=== PATIENT | female | born 1980 | race Caucasian/White ===

== ENCOUNTER 2019-04-09 16:29 | Emergency (ER) | payer SELFPAY ==
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
[2019-04-09] MEDS ORDERED: HYDROCODONE/APAP 10/325 TAB ONE (17:15)
== END 2019-04-09 17:54 | disposition home or self-care (01) ==
LOC: EDSEX 16:29 → ER 16:29
PROC: 0JQ00ZZ Repair Scalp Subcutaneous Tissue and Fascia, Open Approach (ICD-10-PCS; principal; 2019-04-09)
DX: S01.01XA Laceration without foreign body of scalp, initial encounter (principal); S00.90XA Unspecified superficial injury of unspecified part of head, initial encounter; F17.210 Nicotine dependence, cigarettes, uncomplicated; Y04.2XXA Assault by strike against or bumped into by another person, initial encounter; Y93.9 Activity, unspecified; Y92.9 Unspecified place or not applicable; Z88.0 Allergy status to penicillin
CPT/HCPCS: 99284

== ENCOUNTER → 2023-09-21 | Emergency (ER) | payer OTHER, SELFPAY ==
[~2023-09-21] MED LIST: DIAZEPAM 5 MG TABLET ONE; HYDROCODONE/APAP 5/325 MG TAB ONE
--- OUTSIDE RECORDS SUMMARY | 2023-09-21 08:07 | XMS REPORT | Continuity of Care Document ---
Author Name Unknown Address [address] [facility] [place] [address] [facility] Address 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 Name Role Phone Chantelle Riojas Primary Care Physicia n Shira Donis Attending Clinician Unavailable CHANTELLE CAMPBELL Attending Clinician Unavail able Chantelle Riojas Attending Clinician + Louisa Friedman RN Attending Clinician Shira Donis Attending Clinician Patricia CALLAHAN Attending Clinician Unavailable L[place] Admitting Clinician Unavailable Payers Payer Name Policy Type Policy Number Effective Date Expirati on Date Source [facility] [id number] 2022 00:00:00 Problems Condition Name Condition Details Condition Category Status Onset Date Resolution Date Last Treatment Date Treating Clinician Comments Source Obesity (BMI 30-39.9) Obesity (BMI 30-39.9) Disease Active 2022-08 00:00: 00 [facility] History of bilateral tubal ligation History of bilateral tubal ligation Disease Active 2022-08 00:00: 00 [facility] Well woman exam Well woman exam Disease Active 2022-08 00:00: 00 [facility] Allergies, Adverse Reactions, Alerts Allergy Name Allergy Type Status Severity Reaction(s) Onset Date Inactive Date Treating Clinician Comments Source Penicill ins Propensi ty to adverse reaction s Active Anaphylaxis 11-02 00:00: 00 [facility] PENICILL INS Drug Class Active Anaphylaxis 11-02 00:00: 00 [facility] Social History Social Habit Start Date Stop Date Quantity Comments Source History of tobacco use Smokes tobacco daily [facility] Tobacco use and exposure 2023-05-29 00:00:00 2023-05-29 00:00:00 Smokeless tobacco non-user [facility] Alcohol intake 2023-05-29 00:00:00 2023-05-29 00:00:00 Ex-drinker (finding) [facility] History of Social function 2023-05-29 00:00:00 2023-05-29 00:00:00 [facility] Tobacco Comment 2023-05-29 00:00:00 2023-05-29 00:00:00 Vapes since 2021 [facility] Sex Assigned At 1980 00:00:00 1980 00:00:00 [facility] Smoking Status Start Date Stop Date Source Smokes tobacco daily 2023-05-29 00:00:00 [facility] Medications Ordered Medication Name Filled Medication Name Start Date Stop Date Current Medication? Ordering Clinician Indication Dosage Frequency Signature (SIG) Comments Components Source CIPROFLOXAC IN 500 MG ORAL TAB 11-02 00:00: 00 Yes Take one tablet by mouth twice a day for ten days [facility] CIPROFLOXAC IN 500 MG ORAL TAB 11-02 00:00: 00 Yes Take one tablet by mouth twice a day for ten days [facility] CIPROFLOXAC IN 500 MG ORAL TAB 11-02 00:00: 00 Yes Take one tablet by mouth twice a day for ten days [facility] CIPROFLOXAC IN 500 MG ORAL TAB 11-02 00:00: 00 Yes Take one tablet by mouth twice a day for ten days [facility] CIPROFLOXAC IN 500 MG ORAL TAB 11-02 00:00: 00 Yes Take one tablet by mouth twice a day for ten days [facility] CIPROFLOXAC IN 500 MG ORAL TAB 11-02 00:00: 00 Yes Take one tablet by mouth twice a day for ten days [facility] Vital Signs Vital Name Observation Time Observation Value Comments Bennie anderson Systolic blood pressure 2023-05-29 14:22:00 133 mm[Hg] [facility] Diastolic blood pressure 2023-05-29 14:22:00 83 mm[Hg] [facility] Heart rate 2023-05-29 14:22:00 87 /min [facility] Body temperature 2023-05-29 14:22:00 36.67 Teresita [facility] Respiratory rate 2023-05-29 14:22:00 17 /min [facility] Body height 2023-05-29 14:22:00 160 cm [facility] Body weight 2023-05-29 14:22:00 90.084 kg [facility] BMI 2023-05-29 14:22:00 35.18 kg/m2 [facility] Encounters Start Date/Time End Date/Time Encounter Type Admission Type Attending Clinicians Care Facility Care Department Encounter ID Source 2022-12-30 16:53:01 Outpatient White, Shira HPNT HPNT [id number] [facility] oint 2022-10-02 09:50:02 Outpatient HPNT HPNT [id number] [facility] oint 2022-09-08 11:15:04 Outpatient HPNT HPNT [id number] [facility] 2022-08-20 13:04:02 Outpatient HPNT HPNT [id number] [facility] 2022-08-19 09:48:05 Outpatient HPNT HPNT [id number] [facility] oint 2023-08-25 06:42:12 2023-08-25 23:59:00 Outpatient CHANTELLE BARAJAS [facility] [id number] [facility] 2023-08-25 06:42:12 2023-08-25 23:59:00 Hospital Encounter Akinsipe, Chantelle C [facility] [id number] [facility] 2023-07-05 00:00:00 2023-07-05 00:00:00 Patient Outreach Louisa Friedman [id number] [facility] 2023-06-28 00:00:00 2023-06-28 00:00:00 Patient Outreach Louisa Friedman [id number] [facility] 2023-05-29 09:30:00 2023-05-29 10:06:02 Office Visit Chantelle Campbell [facility] 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 [facility] [id number] [facility] 2023-05-29 09:30:00 2023-05-29 10:06:02 Outpatient R CHANTELLE CAMPBELL [facility] [id number] [facility] 2022-08-26 00:00:00 2022-08-26 00:00:00 Outpatient White Shira [facility] [id number] [facility] 2022-02-18 10:39:00 2022-02-18 10:39:00 Outpatient MARCO RAMON [id number] Bryanna mauro [facility] Program Results Test Description Test Time Test Comments Results Result Co mments Source CULTURE, URINE 2023-09-11 14:39:06 SPECIMEN NUMBER: [id number] CULTURE, URINE SPECIMEN NUMBER: [id number] SPECIMEN COMMENT: URINE SOURCE: URINE REPORT STATUS: FINAL ISOLATE NUMBER 1: ORGANISM: 09/10/2023 >100,000 CFU/ML GRAM NEGATIVE BACILLI IDENTIFICATION: 09/11/2023 ESCHERICHIA COLI E. COLI AMOX ICILLIN/CA SENSITIVE <=8/4AMPICILLIN RESISTANT >16CEFAZOLIN SENSITIVE 8CEFTRIAXONE SENSITIVE <=1CIPROFLOXACIN SENSITIVE <=1LEVOFLOXACIN SENSITIVE <=2NITROFURANTOIN SENSITIVE <=32PIP/TAZOBAC SENSITIVE <=16TETRACYCLINE SENSITIVE <=4TOBRAMYCIN SENSITIVE <=4TRIMETH/SULFA SENSITIVE <=2/38 NOTE: NUMBERS DISPLAYED REPRESENT MINIMUM INHIBITORY CONCENTRATION (ZAIRE) WHICH IS EXPRESSED IN MCG/ML. UNLESS OTHERWISE INDICATED, ALL TESTING PERFORMED AT [employer] [employer] [address] [place] [address] COLD ROLL OPERATOR: DAT MARIE M.D. [place] NUMBER [id number] [facility] [place]. [id number] PROTHROMBIN TIME (PT)2023-07-27 04:06:55* Test Item Value Reference Range Interpretation Comme nts PROTHROMBIN TIME (PT) (test code = 1402) 13.0 SECONDS 12.5-14.7 INR (test code = 48111) 0.9 SEE BELOW CURRENT RECOMMENDATIONS ARE FOR AN INR OF 2.0-3.0 FOR ALL PATIENTS ON VITAMIN K ANTAGONISTS, EXCEPT THOSE WITH PROSTHETIC HEART VALVES, FOR WHOM INR OF 2.5-3.5 IS RECOMMENDED. UNLESS OTHERWISE INDICATED, ALL TESTING PERFORMED AT [facility] [employer] [facility]. [address] [place] [address] COLD ROLL OPERATOR: DAT MARIE M.D. [place] NUMBER [id number] [place]. [id number] HEPATITIS C [id number] 17:39:57* Test Item Value Reference Range Interpretation Comme nts HEPATITIS C GENOTYPE (test code = 67607) 2 Assay method ology is real-time PCR amplification of the 5'UTR maqHV1x regions of the HCV genome utilizing the [employer] RealTime HCVGenotype II assay and Jiang HCV Genotype Plus assay. Possiblegenotypes include 1a, 1b, 2, 3, 4, 5, and 6. UNLESS OTHERWISE INDICATED, ALL TESTING PERFORMED AT [employer], [facility]. [address] [place] [address] COLD ROLL OPERATOR: DAT MARIE M.D. CLIA NUMBER [id number] [facility] [place]. [id number] PROTEOTYPE S/Z, REFLEX TO [id number] 09:54:37* Test Item Value Reference Range Interpretation Comme nts [id number] (test code = 17643) 149 mg/dL 100-190 -------ADITI TIONAL INFORMATION -------Method: Nephelometry A1AT PROTEOTYPE S/Z (test code = 71013) (NOTE) S Mutation: NegativeZ Mutation: Negative Results most consistent with MM phenotype. ADITI TIONAL INFORMATION -------This test was developed and its performance characteristics determined by [facility] in a manner consistent with CLIA requirements. This test has not been cleared or approved by the U.S. Food and Drug Administration. CRITHIDIA DS DNA [id number] 01:11:15* Test Item Value Reference Range Interpretation Comme nts CRITHIDIA DS DNA ANTIBODY (test code = 71397) <1:10 See_Comment [Automated [employer]] The system which generated this result transmitted reference range: <1:10. The reference range was not used to interpret this result as normal/abnormal. HCV RNA, PCR [id number] 18:52:21* Test Item Value Reference Range Interpretation Comme nts HCV RNA, PCR QUANT (test code = 4571) [id number] IU/ML H HCV VIRAL LOG (test code = 18161) 6.364 LOG IU/ML H Based on this re sult, reflex HCV Genotype testing will be performed and reported separately. Range of quantitation is 15-100,000,000 IU/mL, (1.176-8.000 logIU/mL). Samples with HCV RNA detected below the limit ofquantitation are reported as <15 IU/mL. Assay methodology ispolymerase chain reaction (PCR) using the Nabila Chaitanya 6800/Eayun00system. The expected range is NOT DETECTED. HCV QUANT, REFLEX [id number] 18:52:21* Test Item Value Reference Range Interpretation Comme nts HCV RNA, PCR QUANT (test code = 4571) 0050428 IU/ML H HCV VIRAL LOG (test code = 49184) 6.364 LOG IU/ML H Based on this re sult, reflex HCV Genotype testing will be performed and reported separately. Range of quantitation is 15-100,000,000 IU/mL, (1.176-8.000 logIU/mL). Samples with HCV RNA detected below the limit ofquantitation are reported as <15 IU/mL. Assay methodology ispolymerase chain reaction (PCR) using the Nabila Chaitanya [employer]0/8800system. The expected range is NOT DETECTED. CORTISOL, A.M. [id number] 11:03:19* Test Item Value Reference Range Interpretation Comme [facility] CORTISOL, A.M. SPECIMEN (jorge t code = 4267) 0.7 UG/DL 4.8-19.5 L DNA DS ANTIBODY REFLEX [id number] 07:22:57* Test Item Value Reference Range Interpretation Comme nts dsDNA ANTIBODY (test code = 63710) 5.0 SEE BELOW H NEGATIVE . . . . . . . . . . . . . . IU/ML <=4.9 INDETERMINATE. . . . . . . . . . . . IU/ML 5.0-9.0 POSITIVE . . . . . . . . . . . . . . IU/ML >=10.0 dsDNA ANTIBODY REFLEX (test code = 78424) (NOTE) NEGATIVE NOTE: PLEASE REFER TO RESULTS OF CRITHIDIA DS DNA ANTIBODY. BOLAÑOS (Sm) [id number] 07:22:57* Test Item Value Reference Range Interpretation Comme nts BOLAÑOS (Sm) ANTIBODY (test co de = 41410) <0.2 AI <1.0 HEPATITIS PANEL, [id number] 05:58:02* Test Item Value Reference Range Interpretation Comme nts HEPATITIS A IgM (test code = 86008) NON-REACTIVE NON-REACTIVE HEPATITIS B CORE IgM (test code = 4644) NON-REACTIVE NON-REACTIVE HEPATITIS B SURF AG (test code = 2739) NON-REACTIVE NON-REACTIVE HEPATITIS C ANTIBODY (test code = 4675) REACTIVE NON-REACTIVE A INTERPRETATION HEPATITIS A: (test code = 2552) (NOTE) Hepatitis A serology shows no evidence of acute hepatitis A. INTERPRETATION HEPATITIS B: (test code = 61634) (NOTE) Hepatitis B serology shows no evidence of acute hepatitis B andno indication of exposure to hepatitis B virus in the previous yuly eight months. INTERPRETATION HEPATITIS C: (test code = 24994) (NOTE) Hepatitis C serology is consistent with exposure to hepatitis Cvirus. The CDC recommends performing a supplemental confirmatory teston initial positive hepatitis C antibody tests. HCV PCR quantitativecan be used to confirm these results on a new sample (See MMWR, 2003;52 RR-3). HCV, RFLX QNT, RFLX SOTO (QNT>500)2023-07-14 05:58:02* Test Item Value Reference Range Interpretation Comme nts HEPATITIS C ANTIBODY (test c ode = 4675) REACTIVE NON-REACTIVE A JUAN (ANTI-NUCLEAR AB) WITH REFLEX [id number] 03:32:23* Test Item Value Reference Range Interpretation Comme nts ANTI-NUCLEAR ANTIBODIES (test code = 3506) POSITIVE NEGATIVE A JUAN PATTERN (REPORTED TITER) (test code = 12261) SEE BELOW HOMOGENEOUS (test code = 16767) 1:80 TITER NEGATIVE H SPECKLED (test code = 197592) NEGATIVE TITER NEGATIVE DENSE FINE SPECKLED (test code = 36954) NEGATIVE TITER NEGATIVE CENTROMERE (test code = 503015) NEGATIVE TITER NEGATIVE COARSE SPECKLED (test code = 724735) NEGATIVE TITER NEGATIVE DISCRETE NUCLEAR DOTS (test code = 868090) NEGATIVE TITER NEGATIVE NUCLEOLAR (test code = 678573) NEGATIVE TITER NEGATIVE NUCLEAR MEMBRANE (test code = 406804) NEGATIVE TITER NEGATIVE CYTO. RETICULAR (LILY) (test code = 637437) NEGATIVE NEGATIVE COMMENTS (test code = 403233) NONE METHOD (test code = 20712) (NOTE) TESTING PERFORME D BY [employer]AT[employer].THE METHOD INCLUDES A SCREEN THRESHOLD OF 1:80, DIGITIZED AND COMPUTER ALGORITHM-ASSISTED INTERPRETATION OF TITERS AND DIGITAL PATTERNS, AND HEp-2 CELL LINE SUBSTRATE. ADDITIONAL UNUSUAL PATTERNS WILL BE GIVEN COMMENTS.FOR MORE INFORMATION, SEE [email or web address] UNLESS OTHERWISE INDICATED, ALL TESTING PERFORMED AT [facility] [address] [place] [id number] COLD ROLL OPERATOR: DAT MARIE M.D. CLIA NUMBER [id number] [facility] [place] [place]. [id number] COMPREHENSIVE METABOLIC [id number] 07:45:42* Test Item Value Reference Range Interpretation Comme nts GLUCOSE (test code = 2216) 77 MG/DL 70-99 BUN (test code = 2207) 12 MG/DL 6-20 CREATININE (test code = 2214) 0.82 MG/DL 0.60-1.30 eGFR (2020 CKD-EPI) (test co de = 26568) 91 ML/MIN/1.73 >60 CALC BUN/CREAT (test code = 2235) 15 RATIO 6-28 SODIUM (test code = 223) 140 MEQ/L 133-146 POTASSIUM (test code = 2228) 4.6 MEQ/L 3.5-5.4 CHLORIDE (test code = 2215) 104 MEQ/L 95-107 CARBON DIOXIDE (test code = 2206) 14 MEQ/L 19-31 L CALCIUM (test code = 2209) 9.3 MG/DL 8.5-10.5 PROTEIN, TOTAL (test code = 222) 7.0 G/DL 6.1-8.3 ALBUMIN (test code = 2201) 4.2 G/DL 3.5-5.2 CALC GLOBULIN (test code = 2240) 2.8 G/DL 1.9-3.7 CALC A/G RATIO (test code = 2234) 1.5 RATIO 1.0-2.6 BILIRUBIN, TOTAL (test code = 220) 0.3 MG/DL <=1.2 ALKALINE PHOSPHATASE (test code = 2204) 44 U/L 40-113 AST (test code = 221) 22 U/L 9-40 ALT (test code = 2219) 14 U/L 5-40 LIPID [id number] 07:45:42* Test Item Value Reference Range Interpretation Comme nts CHOLESTEROL (test code = 2210) 178 MG/DL <200 TRIGLYCERIDES (test code = 2232) 62 MG/DL <150 HDL CHOLESTEROL (test code = 2220) 56 MG/DL >39 CALC LDL CHOL (test code = 2237) 108 MG/DL <100 H NOTE: CALCULATED LDL IS BASED ON JENNIE-BANEGAS METHOD WHICHINCLUDES ADJUSTABLE TRIGLYCERIDE:VLDL CHOLESTEROL RATIO.THIS FACTOR VARIES BY MEASURED TRIGLYCERIDE AND NON-HDLCHOLESTEROL CONCENTRATIONS WITH INCREASED CALCULATED LDL SEENIN HIGHER TRIGLYCERIDE OR LOWER NON-HDL SPECIMENS. FOR MOREINFORMATION, SEE CLIENT ANNOUNCEMENT AT [email or web address] RISK RATIO LDL/HDL (test code = 2238) 1.93 RATIO <3.22 TSH, THIRD [id number] 07:41:46* Test Item Value Reference Range Interpretation Comme nts TSH, THIRD GENERATION (test code = 2821) 3.180 UIU/ML 0.400-4.100 HEMOGLOBIN [id number] 03:22:31* Test Item Value Reference Range Interpretation Comme nts HEMOGLOBIN A1c (test code = 93526) 5.2 % 4.2-5.6 CBC W/AUTO DIFF WITH [id number] 02:44:19* Test Item Value Reference Range Interpretation Comme nts WBC (test code = 1001) 5.1 K/UL 3.5-11.0 RBC (test code = 1002) 4.59 M/UL 3.80-5.40 HEMOGLOBIN (test code = 1003) 11.8 G/DL 11.5-15.5 HEMATOCRIT (test code = 1004) 36.9 % 34.0-45.0 MCV (test code = 1005) 80.4 fL 80.0-99.0 MCH (test code = 1006) 25.7 PG 25.0-33.0 MCHC (test code = 1007) 32.0 G/DL 31.0-36.0 RDW (test code = 1038) 14.0 % 11.5-15.0 NEUTROPHILS (test code = 1008) 58.5 % LYMPHOCYTES (test code = 1010) 30.0 % MONOCYTES (test code = 1011) 8.5 % EOSINOPHILS (test code = 1012) 1.6 % BASOPHILS (test code = 1013) 1.2 % IMMATURE GRANULOCYTES (test code = 1036) 0.2 % NUCLEATED RBCS (test code = 1065) 0.0 /100 WBC'S See_Comment [Automated [employer]] The system which generated this result transmitted reference range: 0.0. The reference range was not used to interpret this result as normal/abnormal. PLATELET COUNT (test code = 1015) 362 K/UL 130-400 ABSOLUTE NEUTROPHILS (test code = 1066) 2.97 K/UL 1.50-7.50 ABSOLUTE LYMPHOCYTES (test code = 1067) 1.52 K/UL 1.00-4.00 ABSOLUTE MONOCYTES (test code = 1068) 0.43 K/UL 0.20-1.00 ABSOLUTE EOSINOPHILS (test code = 1040) 0.08 K/UL 0.00-0.50 ABSOLUTE BASOPHILS (test code = 1069) 0.06 K/UL 0.00-0.20 ABS IMMATURE GRANULOCYTES (test code = 1020) 0.01 K/UL 0.00-0.10 ABS NUCLEATED RBCS (test code = 52953) 0.00 K/UL 0.00-0.11
[2023-09-21 08:44] LABS: Specific Gravity 1.025 (1.005-1.030)
[2023-09-21 08:49] LABS: Specific Gravity 1.025 (1.005-1.030); Transitional Epithelial <5 /HPF (None Seen); Urine Bacteria <20 /HPF (<20); Urine Bilirubin NEGATIVE (Negative); Urine Blood Negative (Negative); Urine Clarity Extremely Turbid (Clear); Urine Color Yellow (Yellow); Urine Glucose NEGATIVE (Negative); Urine Mucus 1+ /HPF (None Seen); Urine Protein 1+ (Negative); Urine Urobilinogen Normal (Normal); Urine pH 5.5 (5.0-7.0)
--- NOTE | 2023-09-21 10:23 | ER ---
Nurse's Notes [facility] Name: Marco Antonio Zhang Age: 42 yrs Sex: Female : 1980 Arrival Date: 09/21/2023 Time: 08:04 Bed 7 Private MD: Diagnosis: Low back pain Presentation: 09/21 08:16 Chief complaint: Patient states: she started having low back pain yesterday morning, of ap3 which she rates a 10/10 on the pain scale. patient reports normal urine and bowel habits at this time. patient denies any NVD. Coronavirus screen: At this time, the client does not indicate any symptoms associated with coronavirus-19. Ebola Screen: No symptoms or risks identified at this time. Initial Sepsis Screen: Does the patient meet any 2 criteria? HR > 90 bpm. Does the patient have a suspected source of infection? No. Patient's initial sepsis screen is negative. Risk Assessment: Do you want to hurt yourself or someone else? Patient reports no desire to harm self or others. Onset of symptoms was September 20, 2023 at 06:30. 08:16 Method Of Arrival: Ambulatory ap3 08:16 Acuity: LAURYN 4 ap3 Triage Assessment: 08:18 General: Appears uncomfortable, Behavior is calm, cooperative, appropriate for age. ap3 Pain: Complains of pain in low back area Pain currently is 10 out of 10 on a pain scale. Quality of pain is described as aching. Neuro: Level of Consciousness is awake, alert, obeys commands, Oriented to person, place, time, situation, Appropriate for age. Cardiovascular: Patient's skin is warm and dry. Respiratory: Airway is patent Respiratory effort is even, unlabored, Respiratory pattern is regular, symmetrical. Historical: - Allergies: 08:18 PENICILLINS; ap3 - PMHx: 08:18 hep C; ap3 - Immunization history:: Client reports having NOT received the Covid vaccine. Flu vaccine is not up to date. - Social history:: Smoking status: Reported history of juuling and/or vaping. Screenin:19 [facility] ED Fall Risk Assessment (Adult) History of falling in the last 3 months, ap3 including since admission No falls in past 3 months (0 pts). Abuse screen: Denies threats or abuse. Nutritional screening: No deficits noted. Tuberculosis screening: No symptoms or risk factors identified. Assessment: 08:21 General: Appears in no apparent distress. uncomfortable, Behavior is calm, cooperative, ko1 appropriate for age. Pain: Complains of pain in low back area. Vital Signs: 08:16 BP 131 / 87; Pulse 112; Resp 17; Temp 98.7; Pulse Ox 100% ; Weight 86.18 kg; Height 5 ap3 ft. 3 in. ; Pain 10/10; 08:57 BP 142 / 71; Pulse 99; Resp 15; Pulse Ox 99% ; ko1 10:38 BP 138 / 68; Pulse 97; Resp 16; Pulse Ox 99% ; ko1 08:16 Body Mass Index 33.66 (86.18 kg, 160.02 cm) ap3 08:16 Pain Scale: Adult ap3 ED Course: 08:07 Patient arrived in ED. im 08:11 Andrew Coker DO is Attending Physician. ms3 08:15 Bonnie Bahena, RN is Primary Nurse. ko1 08:18 Triage completed. ap3 08:19 Arm band placed on right wrist. ap3 08:19 Patient has correct armband on for positive identification. Call light in reach. Side ap3 rails up X 1. Adult w/ patient. Pulse ox on. NIBP on. 08:28 Urinalysis w/ reflexes Sent. ko1 08:28 Test, Urine Sent. ko1 08:57 No provider procedures requiring assistance completed. ko1 10:22 Lambert Webb DO is Referral Physician. ms3 10:38 Provided Education on: na. ko1 10:38 Patient did not have IV access during this emergency room visit. ko1 Administered Medications: 08:28 Drug: HYDROcodone-acetaminophen PO 5 mg-325 mg 1 tabs PO once Route: PO; ko1 09:40 Follow up: Response: No adverse reaction; Pain is decreased ko1 08:28 Drug: Diazepam PO 5 mg PO once Route: PO; ko1 09:40 Follow up: Response: No adverse reaction ko1 Medication: 10:38 VIS not applicable for this client. ko1 Outcome: 10:22 Discharge ordered by . ms3 10:38 Discharged to home ambulatory, with family, ko1 10:38 Condition: stable 10:38 Discharge instructions given to patient, family, Instructed on discharge instructions, follow up and referral plans. medication usage, Demonstrated understanding of instructions, follow-up care, medications, Prescriptions given X 2, 10:40 Patient left the ED. ko1 Signatures: Maylin Marie, RN RN ap3 Andrew Coker DO DO ms3 Bonnie Bahena, SAPNA RN ko1 Carlita Bruce
--- NOTE | 2023-09-21 10:23 | EDPHYS ---
Physician Documentation [facility] Name: Marco Antonio Zhang Age: 42 yrs Sex: Female : 1980 Arrival Date: 09/21/2023 Time: 08:04 Bed 7 Private MD: ED Physician Andrew Coker HPI: 09/21 10:22 This 42 yrs old Female presents to ER via Ambulatory with complaints of Low Back Pain. ms3 10:22 42-year-old female with past medical history of hepatitis C presents emergency ms3 department for low back pain that began yesterday. Patient states pain is 10/10. Patient denies nausea, vomiting, urinary or bladder incontinence, numbness/weakness.. Historical: - Allergies: 08:18 PENICILLINS; ap3 - PMHx: 08:18 hep C; ap3 - Immunization history:: Client reports having NOT received the Covid vaccine. Flu vaccine is not up to date. - Social history:: Smoking status: Reported history of juuling and/or vaping. ROS: 10:22 Constitutional: Negative for fever, and chills. Neck: Negative for injury, pain, and ms3 swelling, Cardiovascular: Negative for chest pain, and palpitations. Respiratory: Negative for shortness of breath, cough, wheezing, and pleuritic chest pain, Abdomen/GI: Negative for abdominal pain, nausea, vomiting, diarrhea, and constipation, MS/Extremity: Negative for injury and deformity, Skin: Negative for injury, rash, and discoloration, 10:22 Back: Positive for Low back pain, Exam: 10:22 Constitutional: This is a well developed, well nourished patient who is awake, alert, ms3 and in no acute distress. Head/Face: Normocephalic, atraumatic. Neck: Trachea midline, no cervical lymphadenopathy. Supple, full range of motion without nuchal rigidity, or vertebral point tenderness. No Meningismus. Chest/axilla: Normal chest wall appearance and motion. Nontender with no deformity. Cardiovascular: Regular rate and rhythm with a normal S1 and S2. No gallops, murmurs, or rubs. Normal PMI, no JVD. No pulse deficits. Respiratory: Lungs have equal breath sounds bilaterally, clear to auscultation and percussion. No rales, rhonchi or wheezes noted. No increased work of breathing, no retractions or nasal flaring. Abdomen/GI: Soft, non-tender, with normal bowel sounds. No distension or tympany. No guarding or rebound. No evidence of tenderness throughout. 10:22 Back: pain, that is moderate, of the left low back and right low back, Vital Signs: 08:16 BP 131 / 87; Pulse 112; Resp 17; Temp 98.7; Pulse Ox 100% ; Weight 86.18 kg; Height 5 ap3 ft. 3 in. ; Pain 10/10; 08:57 BP 142 / 71; Pulse 99; Resp 15; Pulse Ox 99% ; ko1 10:38 BP 138 / 68; Pulse 97; Resp 16; Pulse Ox 99% ; ko1 08:16 Body Mass Index 33.66 (86.18 kg, 160.02 cm) ap3 08:16 Pain Scale: Adult ap3 MDM: 08:22 Patient medically screened. ms3 10:22 Differential diagnosis: sciatica, Herniated disc UTI. Data reviewed: vital signs, ms3 nurses notes, lab test result(s), and as a result, I will discharge patient. I considered the following discharge prescriptions or medication management in the emergency department Medications were administered in the Emergency Department. See MAR. Counseling: I had a detailed discussion with the patient and/or guardian regarding the historical points, exam findings, and any diagnostic results supporting the discharge/admit diagnosis, lab results, the need for outpatient follow up, to return to the emergency department if symptoms worsen or persist or if there are any questions or concerns that arise at home. Special discussion: I discussed with the patient/guardian in detail that at this point there is no indication for admission to the hospital. It is understood, however, that if the symptoms persist or worsen the patient needs to return immediately for re-evaluation. ED course: Discussed labs with patient. Patient to follow-up with primary care physician in 2 to 3 days. Patient understands and agrees with plan. All questions were answered. Return precautions discussed include worsening symptoms, or any other concerns. On reevaluation patient improved, alert and orient x 4, no apparent distress, nontoxic-appearing, ambulatory emerged department, speaking full sentences. 09/21 08:12 Order name: Urinalysis w/ reflexes; Complete Time: 09:29 ms3 09/21 08:12 Order name: Test, Urine; Complete Time: 09:29 ms3 Administered Medications: 08:28 Drug: HYDROcodone-acetaminophen PO 5 mg-325 mg 1 tabs PO once Route: PO; ko1 09:40 Follow up: Response: No adverse reaction; Pain is decreased ko1 08:28 Drug: Diazepam PO 5 mg PO once Route: PO; ko1 09:40 Follow up: Response: No adverse reaction ko1 Disposition: 15:58 Chart complete. ms3 Disposition Summary: 09/21/23 10:22 Discharge Ordered Notes: Location: Home ms3 Condition: Stable ms3 Diagnosis - Low back pain ms3 Followup: ms3 - With: Lambert Webb DO - When: 2 - 3 days - Reason: Recheck today's complaints Discharge Instructions: - Discharge Summary Sheet ms3 - Acute Back Pain, Adult ms3 Forms: - Medication Reconciliation Form ms3 - Thank You Letter ms3 - Antibiotic Education ms3 - Prescription Opioid Use ms3 - Patient Portal Instructions ms3 - Leadership Thank You Letter ms3 Prescriptions: - Ibuprofen 600 mg Oral Tablet - take 1 tablet ORAL route every 6 hours As needed take with food; 30 tablet; ms3 Refills: 0, Product Selection Permitted - Cyclobenzaprine 10 mg Oral Tablet - take 1 tablet ORAL route every 8 hours As needed; 30 tablet; Refills: 0, ms3 Product Selection Permitted Signatures: Dispatcher [employer] Maylin Rios, RN RN ap3 Andrew Coker DO DO ms3 Bonnie Bahena RN RN ko1
[2023-09-21 10:53] VITALS: BP 138/68; TEMP 98.7; O2SAT 99
== END ==
LOC: ER 08:04
DX: M54.50 Low back pain, unspecified (principal); Z88.0 Allergy status to penicillin
CPT/HCPCS: 81001; 81025